=== PATIENT | male | born 1965 | race Caucasian/White ===

== ENCOUNTER 2020-09-08 18:07 | Emergency (ER) | payer OTHER, SELFPAY ==
[2020-09-08 18:15] VITALS: BP 145/93; PULSE 87; RESP 18; TEMP 37.1; O2SAT 95; BMI 34.1
--- NOTE | 2020-09-08 18:35 | HMH.EDUTC ---
[facility] [place] Disposition Clinical Impression: Bronchitis Sinus infection Qualifiers: Sinusitis location: unspecified location Chronicity: acute Recurrence: non-recurrent Qualified Code(s): J01.90 - Acute sinusitis, unspecified Disposition: Home, Self-Care Condition on Discharge: Good Instructions: DI for Sinusitis, DI for Acute Bronchitis Additional Instructions: Drink plenty of fluids. Take tylenol or ibuprofen for pain or fever. Take the medications as directed. Follow up with your regular doctor. GO TO THE ER FOR ANY WORSENING SYMPTOMS Don't start the oral steroids until tomorrow, since you had the shot here today. Prescriptions: methylPREDNISolone [Medrol] 4 mg PO DIRECTED 6 Days #21 [email or web address] Transmission Status: Received by [id number] Cefdinir [Omnicef 300mg Capsule] 300 mg PO BID #20 cap Transmission Status: Received by [id number] Benzonatate [Tessalon Perle 100mg Cap] 100 mg PO TIDP PRN #30 cap PRN Reason: Cough Transmission Status: Received by [id number] Referrals: Laura Ortiz APRN [Primary Care Provider] - Forms: Work/School Release Time of Disposition: 19:16 Medical Decision Making - Medical Records Medical records reviewed: No: I reviewed the patient's medical records. - Raf Inquiry Pt receiving controlled substance: No Vital Signs: 09/08/20 18:15 09/08/20 19:30 Temperature 98.7 F 98 F Temperature Source Oral Pulse Rate 66 Pulse Rate [Right] 87 Respiratory Rate 18 16 Blood Pressure 117/84 Blood Pressure [Right Arm] 145/93 H Blood Pressure Mean [Right Arm] 110 Blood Pressure Source [Right Arm] Automatic Cuff Blood Pressure Position [Right Arm] Sitting 02 Sat by Pulse Oximetry 95 Oxygen Delivery Method Room Air Orders (Tests/Meds): ED MEDICATIONS Discontinued Medications Generic Name Dose Route Start Last Admin Trade Name Freq PRN Reason Stop Dose Admin Ceftriaxone Sodium 1 gm 09/08/20 18:40 09/08/20 18:55 Ceftriaxone 1gm Vial IM 09/08/20 18:41 1 gm ONCE ONE Administration Protocol Lidocaine HCl 0 ml 09/08/20 18:40 09/08/20 18:49 Lidocaine 1% 5ml Pf Vial IM 09/08/20 18:41 2 ml ONCE ONE Administration Methylprednisolone Sodium Succinate 125 mg 04/06/21 18:40 09/08/20 18:55 Methylprednisolone Sod Succ 125mg Vial IM 09/08/20 18:41 125 mg ONCE ONE Administration [facility] [place] HPI - General Stated complaint: allergies, congestion, cough Time Seen by Provider: 09/08/20 18:35 Mode of Arrival: Ambulatory Source of Information: Patient Limitations: No Limitations Description of Symptoms (Recalled from Triage Doc. by RN): pt c/o allergies and a productive cough after mowing the grass. he was seen at his dr last week for the same thing and was put on azithromycin and given a steroid injection. he feels like he is not improving. HEENT Symptoms (Recalled from RN notes): Yes (nasal drainage and congestion) Resp Symptoms (Recalled from RN notes): Yes (productive cough) Skin Symptoms (Recalled from RN notes): No MS Symptoms (Recalled from RN notes): No Functional Status (Recalled from RN notes): na - History of Present Illness Provider Complaint: He states that he has been having worsening allergy symptoms and he has worsening sinus congestion. He states that he has allergies and its turning into a sinus infection and he would like to have a steroid shot. He does have a history of diabetes, but he states that he is diet controlled and his blood sugars alway run really good. - Related Data Home Medications Medication Instructions Recorded Confirmed cetirizine 10 mg tablet 10 mg PO DAILY tab 06/25/19 06/25/19 desvenlafaxine succinate 100 mg 100 mg PO DAILY tab 06/25/19 06/25/19 tablet,extended release 24 hr empagliflozin 25 mg tablet 25 mg PO DAILY tab 06/25/19 06/25/19 lisinopril 10 mg tablet 10 mg PO BID tab 06/25/19 06/25/19 metformin 500 mg tablet 500 mg PO BID
[2020-09-08 19:30] VITALS: BP 117/84; PULSE 66; RESP 16; TEMP 36.6
--- NOTE | 2020-09-08 19:51 | PC.NURSE ---
pt called son in law to come get him due to him riding here on a motorcycle. pt sat in room until son got here to pick him up.
== END 2020-09-08 19:52 | disposition home or self-care (01) ==
PROVIDERS: Emergency Provider Nurse Practitioner Family; PCP Nurse Practitioner Family
DX: Z20.822 Contact with and (suspected) exposure to COVID-19 (principal); J20.9 Acute bronchitis, unspecified; J01.90 Acute sinusitis, unspecified; I10 Essential (primary) hypertension; E11.9 Type 2 diabetes mellitus without complications; Z79.899 Other long term (current) drug therapy
CPT/HCPCS: 96372; 99202; G0463

== ENCOUNTER → 2020-09-09 14:45 | Outpatient (CLI) | payer OTHER, SELFPAY | PROVIDERS: PCP Nurse Practitioner Family; Visit Provider Nurse Practitioner Family | DX: Z20.822 Contact with and (suspected) exposure to COVID-19 (principal); R50.9 Fever, unspecified; R05 Cough | CPT/HCPCS: U0003 ==

== ENCOUNTER → 2021-05-18 12:26 | Outpatient (CLI) | payer OTHER, SELFPAY ==
[2021-05-18 12:56] LABS: Basophils # 0.1 K/mm3 (0-0.2); Basophils % 1.2 % (0.1-2.0); Eosinophils # 0.3 K/mm3 (0.0-0.4); Eosinophils % 3.9 % (0.1-12.0); Hematocrit 49.6 % (42.0-52.0); Hemoglobin 16.7 g/dL (14.1-18.0); Lymphocytes % 35.8 % (10-50); Mean Corpuscular HGB Conc 33.6 g/dL (31.8-35.4); Mean Corpuscular Volume 89.4 fl (80-94); Mean Platelet Volume 8.5 fl (7.4-10.4); Monocytes # 0.5 K/mm3 (0.1-1.0); Monocytes % 6.3 % (1.7-9.3); Neutrophils # 4.4 K/mm3 (1.8-7.8); Neutrophils % 52.7 % (37.0-80.0); Platelet Count 202 K/mm3 (142-424); Red Blood Count 5.54 M/mm3 (4.60-6.20); Red Cell Distribution Width 13.5 % (11.5-17.5); White Blood Count 8.4 K/mm3 (4.8-10.8)
[2021-05-18 13:18] LABS: Hemoglobin A1C 9.7 % (4.0-6.0)
[2021-05-18 13:41] LABS: Alanine Aminotransferase 55 U/L (12-78); Albumin Level 4.5 g/dl (3.5-5.0); Albumin/Globulin Ratio 1.6 (1.1-1.8); Alkaline Phosphatase 94 U/L (38-126); Anion Gap 13.4 mEq/L (5-15); Aspartate Amino Transferase 66 U/L (17-59); Bilirubin,Total 0.5 mg/dl (0.2-1.3); Blood Urea Nitrogen 21 mg/dl (9-20); Calcium 9.9 mg/dl (8.4-10.2); Carbon Dioxide 32 mmol/L (22.0-30.0); Chloride 98 mmol/L (98-107); Chol/HDL Ratio 3.5 (1-3.5); Cholesterol 210 mg/dl (140-200); Estimated Glomerular Filt Rate 87 ml/min (>60); GFR (African American) 105 ML/MIN (>60); Globulin 2.8 g/dL (1.3-3.2); Glucose 183 mg/dl (74-100); HDL Cholesterol 60 mg/dl (40-60); Potassium 4.4 mmoL/L (3.5-5.1); Sodium 139 mmol/L (136-145); Total Protein,Serum 7.3 g/dl (6.3-8.2); Triglycerides 78 mg/dl (30-150); VLDL Cholesterol 16 mg/dL (0-40)
[2021-05-18 13:51] LABS: Direct LDL Cholesterol 149.95 mg/dL (100-129)
== END ==
PROVIDERS: Visit Provider Nurse Practitioner Family
DX: Z00.00 Encounter for general adult medical examination without abnormal findings (principal); I10 Essential (primary) hypertension; I48.20 Chronic atrial fibrillation, unspecified; E11.69 Type 2 diabetes mellitus with other specified complication; Z79.84 Long term (current) use of oral hypoglycemic drugs
CPT/HCPCS: 36415; 80053; 80061; 83036; 85025

== ENCOUNTER 2023-05-28 10:43 | Emergency (ER) | payer OTHER, SELFPAY ==
[2023-05-28 11:05] VITALS: BP 122/95; PULSE 117; RESP 20; TEMP 36.6; O2SAT 98; BMI 27.2
--- NOTE | 2023-05-28 11:18 | EXP.UTC ---
Discharge Plan Disposition Patient Disposition: Home, Self-Care Condition: Good Prescriptions Prescriptions: New amoxicillin-pot clavulanate 875-125 mg Tablet 1 tab PO Q12H Qty: 20 0RF fluticasone propionate [Flonase Allergy Relief] 50 mcg/actuation spray,suspension 1 - 2 spray intranasal DAILY Qty: 16 0RF Rx Instructions: administer into each nostril daily No Action metformin 500 mg tablet 500 mg PO BID nitroglycerin 0.4 mg tablet, sublingual 0.4 mg SUBLINGUAL ONCE lisinopril 10 mg tablet 10 mg PO BID metoprolol tartrate 100 mg tablet 100 mg PO BID cetirizine 10 mg tablet 10 mg PO DAILY Patient Comments: TAKE 1 TABLET BY MOUTH ONCE DAILY rivaroxaban 20 mg tablet 20 mg PO DAILY empagliflozin 25 mg tablet 25 mg PO DAILY desvenlafaxine succinate 100 mg tablet extended release 24 hr 100 mg PO DAILY sertraline [Zoloft] 50 mg tablet 50 mg PO DAILY Qty: 30 0RF fluticasone propionate 120 SPR/BOT bottle 1 spr NS DAILY Qty: 1 0RF Rx Instructions: each nostril daily benzonatate 100 MG capsule 100 mg PO TIDP PRN (Reason: Cough) Qty: 30 0RF methylprednisolone 4 MG tablets,dose pack 4 mg PO DIRECTED 6 Days Qty: 21 0RF cefdinir 300 MG capsule 300 mg PO BID Qty: 20 0RF Referrals Follow up/Referrals: Chente Huntley MD [Primary Care Provider] - See instructions Activity Restrictions/Add. Instructions Additional Instructions/Restrictions: *Monitor Temp, Over the counter Motrin or Tylenol as directed/as needed Tylenol every 4 hours and Motrin every 6 hours (as long as your family doctor has told you that you can take it) for fever or pain. and straight to ER if unable to lower temp less than 101.0 after medication given *Warm salt water gargles may help to soothe the throat *Throat Lozenges? *Warm fluids like tea with honey may help to soothe the throat? *Sleep elevated *Humidifier/Vaporizer *Flonase 2 sprays in each nostril daily but be aware that it may take 2-3 days before you notice improvement Follow up IMMEDIATELY for new or worsening symptoms or no Noticeable improvement over the next 48-72 hours. 911 for difficulty breathing or swallowing Clinical Impressions Clinical Impression: Sinus infection Qualifiers: Sinusitis location: unspecified location Chronicity: unspecified Qualified Code(s): J32.9 - Chronic sinusitis, unspecified Instructions Patient Instructions: DI for Sinusitis, Sinusitis Discharge ED Provider: Loulou Rodgers [facility] [place] General Stated complaint: sore throat, right ear pain, cough, congestion Mode of Arrival: Ambulatory Source of Information: Patient Limitations: No Limitations Time Seen by Provider: 05/28/23 11:18 Description of Symptoms (Recalled from Triage Doc. by RN): PATIENT C/O SORE THROAT, RIGHT EAR PAIN, SINUS PRESSURE AND DRAINAGE X 2 DAYS HEENT Symptoms (Recalled from RN notes): Yes Resp Symptoms (Recalled from RN notes): No Skin Symptoms (Recalled from RN notes): No MS Symptoms (Recalled from RN notes): No Functional Status (Recalled from RN notes): WNL History of Present Illness Provider Complaint: Patient states he has been having sinus pain and pressure, pressure behind his eyes and drainage in the back of his throat making his throat sore and scratchy States that he has also been having pain and pressure in his right ear so today he came in to get checked Related Data Home Medications Medication Instructions Recorded Confirmed cetirizine 10 mg tablet 10 mg PO DAILY 06/25/19 06/25/19 desvenlafaxine succinate 100 mg 100 mg PO DAILY 06/25/19 06/25/19 tablet,extended release 24 hr empagliflozin 25 mg tablet 25 mg PO DAILY 06/25/19 06/25/19 lisinopril 10 mg tablet 10 mg PO BID 06/25/19 05/28/23 metformin 500 mg tablet 500 mg PO BID 06/25/19 06/25/19 metoprolol tartrate 100 mg tablet 100 mg PO BID 06/25/19 06/25/19 nitrog
[2023-05-28 11:25] VITALS: BP 122/95; PULSE 117; RESP 20; TEMP 36.6; O2SAT 98
== END 2023-05-28 11:28 | disposition home or self-care (01) ==
PROVIDERS: Emergency Provider Nurse Practitioner; PCP Internal Medicine Adolescent Medicine
DX: J01.90 Acute sinusitis, unspecified (principal); H92.01 Otalgia, right ear; R07.0 Pain in throat; R05.9 Cough, unspecified; R09.81 Nasal congestion; R09.82 Postnasal drip; E11.9 Type 2 diabetes mellitus without complications; I10 Essential (primary) hypertension; I48.0 Paroxysmal atrial fibrillation; Z79.01 Long term (current) use of anticoagulants; Z79.84 Long term (current) use of oral hypoglycemic drugs
CPT/HCPCS: 99212; 99214; G0463